=== PATIENT | male | born 1965 | race Caucasian/White ===

== ENCOUNTER 2017-04-13 08:23 | Emergency (ER) | payer OTHER ==
[~2017-04-13] VITALS: Ht 188 cm; Wt 146.9 kg
[2017-04-13 08:25] VITALS: BP 172/108
== END 2017-04-13 09:37 | disposition home or self-care (01) ==
LOC: ED 09:20
DX: M79.661 Pain in right lower leg (principal); I10 Essential (primary) hypertension
CPT/HCPCS: 99283